=== PATIENT | male | born 1950 | race Caucasian/White ===

== ENCOUNTER 2022-09-01 09:57 | Day surgery (SDC) | payer MEDICARE ==
[2022-08-29 14:48] LABS: BASOPHILS # (AUTO) 0.1 X10'3 (0-0.2); BASOPHILS % (AUTO) 1.3 % (0-1); EOSINOPHILS # (AUTO) 0.2 X10'3 (0-0.9); EOSINOPHILS % (AUTO) 2.8 % (0-6); HEMATOCRIT 45.1 % (42.0-52.0); HEMOGLOBIN 15.4 g/dl (14.0-17.9); LYMPHOCYTES % (AUTO) 33.7 % (21-51); MEAN CORPUSCULAR HEMOGLOBIN 27.9 PG (27.0-31.0); MEAN CORPUSCULAR HGB CONC 34.1 g/dL (33.0-36.5); MEAN CORPUSCULAR VOLUME 81.8 FL (78-98); MEAN PLATELET VOLUME 7.1 FL (7.4-10.4); MONOCYTES # (AUTO) 0.4 X10'3 (0-0.9); NEUTROPHILS # (AUTO) 3.4 X10'3 (1.8-7.7); NEUTROPHILS % (AUTO) 56.2 % (42-75); PLATELET COUNT 254 X10'3 (140-440); RED BLOOD COUNT 5.51 X10'6 (4.70-6.10); RED CELL DISTRIBUTION WIDTH 15.2 % (11.5-14.5)
[2022-08-29 14:52] LABS: ALBUMIN 4.2 G/DL (3.4-5.0); ANION GAP 6 (8-16); BLOOD UREA NITROGEN 21 MG/DL (7-18); BUN/CREATININE RATIO 17.8 (10.0-20.0); CALCIUM 9.7 MG/DL (8.5-10.1); CHLORIDE 104 MMOL/L (99-107); CREATININE 1.18 MG/DL (0.60-1.10); GLUCOSE 93 MG/DL (70-104); POTASSIUM 4.3 MMOL/L (3.5-5.1); SODIUM 143 MMOL/L (135-145); TOTAL CARBON DIOXIDE 33.1 MMOL/L (24-32); eGFR 61 ML/MIN
[2022-09-01] VITALS (24 sets, daily range): BP systolic 114–152; BP diastolic 58–99
[~2022-09-01] VITALS: Ht 177.8 cm; Wt 81.6 kg
[~2022-09-01 09:57] MED LIST: IBUP-24 PO
[2022-09-01] MEDS ORDERED: MIDAZolam 1mg/ml 10ml vial IV ONE (10:20)
[2022-09-01] MEDS ORDERED: LORazepam 0.5 MG tablet PO ONE (10:20)
[2022-09-01] MEDS ORDERED: normal saline 1000ml 1,000 ML IV SCH (10:20)
[2022-09-01] MEDS ORDERED: morphine 10mg/ml inj. IV ONE (10:20)
[2022-09-01] MEDS ORDERED: diphenhydrAMINE 25mg capsule PO ONE (10:20)
[2022-09-01] MEDS ORDERED: atropine 0.1mg/ml 10ml syringe IV ONE (10:20)
[2022-09-01] MEDS ORDERED: amiodarone 150mg/dext, iso-os 100 ML IV ONE (10:20)
[2022-09-01] MEDS ORDERED: ALBU18HF2 INH (10:58)
[2022-09-01] MEDS ORDERED: PANT40TA54 PO (10:58)
[2022-09-01] MEDS ORDERED: IBUP-1986 PO (10:58)
[2022-09-01] MEDS ORDERED: DULO60CA65 PO (10:58)
[2022-09-01] MEDS ORDERED: METO25TA6 PO (10:58)
[2022-09-01] MEDS ORDERED: TRAZ-256 PO (10:58)
[2022-09-01] MEDS ORDERED: WARF4TAB69 PO (10:58)
[2022-09-01] MEDS ORDERED: FLEC100T PO (10:58)
[2022-09-01] MEDS ORDERED: enoxaparin 80mg/0.8ml syringe SUBCUT STA (11:53)
== END 2022-09-01 14:05 | disposition home or self-care (01) ==
LOC: SSTAY O 09:57
PROVIDERS: ATTEND Internal Medicine Cardiovascular Disease
DX: I48.19 Other persistent atrial fibrillation (principal); J44.9 Chronic obstructive pulmonary disease, unspecified; I10 Essential (primary) hypertension; F17.210 Nicotine dependence, cigarettes, uncomplicated; Z79.01 Long term (current) use of anticoagulants; Z79.899 Other long term (current) drug therapy
CPT/HCPCS: 36415; 80048; 85025; 85610; 92960; 93005; J0282; J1650; J2250; J2274; J7030; A4620